=== PATIENT | female | born 1985 ===

== ENCOUNTER 2019-06-30 18:54 | Emergency (ER) | payer OTHER ==
[~2019-06-30] VITALS: Ht 157 cm; Wt 93.6 kg
[2019-06-30] MEDS ORDERED: IBUPROFEN 800 MG (MOTRIN) TAB PO STA (21:10)
--- NOTE | 2019-06-30 21:33 | ED Fall/Injury ---
General Chief Complaint: Trauma-Non Activation Stated Complaint: LEFT WRIST,SHOULDER,ELBOW PAIN Nursing Triage Note: PT FELL WHILE WORKING AT [employer] AND IS COMPLAINING OF RIGHT KNEE, HIP, SHOULDER, ELBOW AND LEFT WRIST. NO OBVIOUSLY DEFORMITIES NOTED. PT DID NOT LOSE CONSCIOUSNESS DURING FALL Source: patient History of Present Illness Date Seen by Provider: Jun 30, 2019 Time Seen by Provider: 20:38 Initial Comments 34-year-old female presenting with complaints of pain after having a fall at 10:40 AM at work. She works for [employer]. She finished her shift at work. She reports that someone had sprayed [employer] cooking spray in the cooking area and it had gotten on the floor. she had slipped and fell hitting her right knee and hip as well as hitting her right elbow and shoulder. She has pain in the right elbow and shoulder primarily. She reports that she is a little stiff with her walking and has mild pain in her hip and knee on the right side but isn't worried about that as much as she has about her elbow and shoulder. She has had prior surgery on the elbow and shoulder area. She is concerned that she may have injured the ligaments or muscles to cause pain. She does not feel that she has any broken bones but it was concerned again about the soft tissues. 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 She denies hitting her head or losing consciousness Allergies and Home Medications Allergies Coded Allergies: azithromycin (Verified Allergy, Unknown, 06/30/19) Home Medications Baclofen 10 Mg Tablet, 10 MG PO TID PRN for SPASMS Prescribed by: SIMON Reed ENVIPULRT on 06/30/192208 Hydrocodone Bit/Acetaminophen 1 Tab Tab, 1 EACH PO Q6H PRN for PAIN-MODERATE Prescribed by: SIMON Reed ENYART on 06/30/192208 Ibuprofen 800 Mg Tablet, 800 MG PO Q8H PRN for PAIN Prescribed by: SIMON MUSTAFART on 06/30/192208 Patient Home Medication List Home Medication List Reviewed: Yes Review of Systems Review of Systems Constitutional: no symptoms reported Eyes: No Symptoms Reported Ears, Nose, Mouth, Throat: no symptoms reported Respiratory: no symptoms reported Cardiovascular: no symptoms reported Gastrointestinal: no symptoms reported Genitourinary: no symptoms reported Musculoskeletal: see HPI Skin: no symptoms reported Past Dkxzsep-Qhlhxw-Xotqao Hx Past Med/Social Hx: Reviewed Nursing Past Med/Soc Hx Patient Social History Alcohol Use: Denies Use Recreational Drug Use: No 2nd Hand Smoke Exposure: No Recent Foreign Travel: No Contact w/Someone Who Travel: No Recent Infectious Disease Expo: No Recent Hopitalizations: No Physical Abuse: No Sexual Abuse: No Mistreated: No Fear: No Past Medical History Surgeries: Yes Orthopedic Respiratory: Yes Asthma Cardiac: No Neurological: No Genitourinary: No Gastrointestinal: No Musculoskeletal: Yes (ARTHROPYOSIS) Endocrine: No HEENT: No Cancer: No Psychosocial: No Integumentary: No Blood Disorders: No Physical Exam Vital Signs Vital Signs - First Documented 06/30/19 19:20 Temp 36.1 Pulse 103 Resp 18 B/P (MAP) 154/97 (116) Pulse Ox 100 O2 Delivery Room Air Capillary Refill : Less Than 3 Seconds Height, Weight, BMI Height: '" Weight: lbs. oz. kg; 37.00 BMI Method: General Appearance: WD/WN, no apparent distress HEENT: PERRL/EOMI, pharynx normal Neck: non-tender, full range of motion, supple, normal inspection Cardiovascular: normal peripheral pulses Extremities: normal capillary refill, other (decreased ROM on right shoulder and elbow due to pain. Mild swelling to right elbow. Normal sensation to right hand ) Neurologic/Psychiatric: alert, normal mood/affect, oriented x 3 Skin: normal color, warm/dry; No ecchymosis Juan Ramon Coma Score Best Eye Response: (4) Open Spontaneously Best Verbal Response: (5) Oriented Best Motor Response: (6) Obeys Commands Juan Ramon Total: 15 Progress/Results/Core Measures Results/Orders My Orders Orders - SIMON SIBLEY MD Ibuprofen Tablet (Motrin Tablet) (06/30/19 21:10) Shoulder 3 View Right (06/30/19 21:10) Elbow 3 View Right (06/30/19 21:10) Rx-Hydrocodone/Apap 5-325 Mg (Rx-Vicodin (06/30/19 22:15) Orthopedic Equiment (06/30/19 22:02) Medications Given in ED Current Medications Medications Dose Ordered Sig/Ramiro Route Start Time Stop Time Status Last Admin Dose Admin Acetaminophen/ Hydrocodone Bitart 1 ea Q6H PRN PO 06/30/19 22:15 06/30/19 22:16 DC 06/30/19 22:07 1 EA Vital Signs/I&O 06/30/19 06/30/19 19:20 22:17 Temp 36.1 Pulse 103 99 Resp 18 16 B/P (MAP) 154/97 (116) 150/90 Pulse Ox 100 100 O2 Delivery Room Air Room Air Blood Pressure Mean: 116 Progress Progress Note #1: Progress Note Ibuprofen for pain and obtain imaging of her right shoulder and elbow. Progress Note #2: Progress Note No acute fracture or dislocation seen of the elbow or shoulder. Advised patient that if she continued to have symptoms she might need MRI or other testing to evaluate muscles and ligaments that she has had prior surgeries. If there is a muscular or tendon type injury that without doing an MRI or something to image the soft tissues it would not show up. Treat symptomatically with a sling for rest and use baclofen for muscle relaxer. Send with a hydrocodone take home pack to help her rest. Ibuprofen for pain and inflammation. Check back through occupational health her work comp clinic for further evaluation. Diagnostic Imaging Diagonstic Imaging: Xray Plain Films/CT/US/NM/MRI: other (shoulder) Comments NAME: BRIANNA KWON MED REC#: [id number] PT STATUS: REG ER : 1985 PHYSICIAN: SIMON SIBLEY MD ADMIT DATE: 06/30/19/ER FS Draft Date of Exam:06/30/19 SHOULDER 3 VIEW RIGHT EXAMINATION: Right shoulder at 9:14 PM INDICATION: Fell Four views were obtained. There are no prior studies available for comparison. There is no fracture, dislocation or acute bony abnormality evident. There is mild narrowing of the glenohumeral and acromioclavicular joints. The soft tissues are unremarkable for an acute abnormality. There do appear to be surgical clips in the soft tissues about the humerus. IMPRESSION: There is no evidence for an acute bony abnormality. Dictated on workstation # [id number] Dict: 06/30/192149 Trans: 06/30/192154 [facility] [id number] Interpreted by: RIANNA NARVAEZ MD Electronically signed by: Diagonstic Imaging: Xray Plain Films/CT/US/NM/MRI: elbow Comments NAME: BRIANNA KWON MED REC#: [id number] PT STATUS: REG ER : 1985 PHYSICIAN: SIMON SIBLEY MD ADMIT DATE: 06/30/19/ER FS Draft Date of Exam:06/30/19 ELBOW 3 VIEW RIGHT EXAMINATION: Right elbow at 9:10 PM INDICATION: Fell, elbow pain 3 views were obtained. There are no prior studies available for comparison. There is no fracture, dislocation or acute bony abnormality identified. The trabecula of the neck of the radius are somewhat irregular but there is no clear evidence for a fracture. The posterior fat-pad is not elevated on the lateral view either. The soft tissues are unremarkable for an acute abnormality. There does seem to be a surgical clip in the soft tissues of the mid upper arm. IMPRESSION: 1. There is no evidence for an acute bony abnormality. 2. If clinical concern regarding an occult fracture persists, then CT would be recommended for further study. Dictated on workstation # [id number] Dict: 06/30/19 2148 Trans: 06/30/19 2154 [facility] [id number] Interpreted by: RIANNA NARVAEZ MD Electronically signed by: Departure Impression Primary Impression: Sprain of shoulder, right Qualified Codes: S43.401A - Unspecified sprain of right shoulder joint, initial encounter Additional Impressions: Sprain of right elbow Qualified Codes: S53.401A - Unspecified sprain of right elbow, initial encounter Fall Qualified Codes: W19.XXXA - Unspecified fall, initial encounter Contusion of right leg Qualified Codes: S80.11XA - Contusion of right lower leg, initial encounter Contusion of right arm Qualified Codes: S40.021A - Contusion of right upper arm, initial encounter Disposition: 01 HOME, SELF-CARE Condition: Stable Departure-Patient Inst. Decision time for Depature: 22:05 Referrals: NO,LOCAL PHYSICIAN (PCP) Primary Care Physician [facility] Patient Instructions: Elbow Sprain (DC), Contusion (DC), Shoulder Sprain (DC) Add. Discharge Instructions: Follow up with Orthopedics or Work Comp clinic about the pain and injury to right shoulder and elbow. Wear sling for next 3-5 days but try to start taking your arm out and using it after 2-3 days so that your arm does not stiffen up. Try the Baclofen (Lioresal) for muscle spasms and tightness in arm and shoulder. May try the Hydrocodone for severe pain and to help you rest tonight. May continue Ibuprofen for pain and inflammation All discharge instructions reviewed with patient and/or family. Voiced understanding. Scripts Baclofen (Baclofen) 10 Mg Tablet 10 MG PO TID PRN for SPASMS for 10 Days, #30 TAB 0 Refills Prov: SIMON SIBLEY MD 06/30/19 Ibuprofen (Ibuprofen) 800 Mg Tablet 800 MG PO Q8H PRN for PAIN for 10 Days, #30 TAB 0 Refills Prov: SIMON SIBLEY MD 06/30/19 Hydrocodone Bit/Acetaminophen (Hydrocodone/Acetaminophen 5/325mg Tablet) 1 Tab Tab 1 EACH PO Q6H PRN for PAIN-MODERATE MDD 10 for 3 Days, #12 TAB 0 Refills Prov: SIMON SIBLEY MD 06/30/19 Work/School Note: Work Release Form Date Seen in the Emergency Department: Jun 30, 2019 Return to Work: Jul 01, 2019 Restrictions: Follow Up With Occ Health Other Restrictions Listed Below: wear sling on right arm. Follow up with Occupational Health. SIMON SIBLEY MD Jun 30, 2019 21:32
--- NOTE | 2019-06-30 21:54 | Diagnostic Imaging Report ---
EXAMINATION: Right elbow at 9:10 PM INDICATION: Fell, elbow pain 3 views were obtained. There are no prior studies available for comparison. There is no fracture, dislocation or acute bony abnormality identified. The trabecula of the neck of the radius are somewhat irregular but there is no clear evidence for a fracture. The posterior fat-pad is not elevated on the lateral view either. The soft tissues are unremarkable for an acute abnormality. There does seem to be a surgical clip in the soft tissues of the mid upper arm. IMPRESSION: 1. There is no evidence for an acute bony abnormality. 2. If clinical concern regarding an occult fracture persists, then CT would be recommended for further study. Dictated by: Dictated on workstation # [id number]
--- NOTE | 2019-06-30 21:56 | Diagnostic Imaging Report ---
EXAMINATION: Right shoulder at 9:14 PM INDICATION: Fell Four views were obtained. There are no prior studies available for comparison. There is no fracture, dislocation or acute bony abnormality evident. There is mild narrowing of the glenohumeral and acromioclavicular joints. The soft tissues are unremarkable for an acute abnormality. There do appear to be surgical clips in the soft tissues about the humerus. IMPRESSION: There is no evidence for an acute bony abnormality. Dictated by: Dictated on workstation # [id number]
[2019-06-30] MEDS ORDERED: BACL10TA PO (22:09)
[2019-06-30] MEDS ORDERED: IBUP-1780 PO (22:09)
[2019-06-30] MEDS ORDERED: ACHD5005 PO (22:09)
[2019-06-30] MEDS ORDERED: RX-HYDROCODONE/APAP 5/325 MG #4 TAB PK PO PRN (22:15)
== END 2019-06-30 22:16 | disposition home or self-care (01) ==
LOC: MERGE 18:56 → ER FS 18:56
DX: S43.401A Unspecified sprain of right shoulder joint, initial encounter (principal); S53.401A Unspecified sprain of right elbow, initial encounter; S80.11XA Contusion of right lower leg, initial encounter; S40.021A Contusion of right upper arm, initial encounter; J45.909 Unspecified asthma, uncomplicated; Z88.1 Allergy status to other antibiotic agents; W01.10XA Fall on same level from slipping, tripping and stumbling with subsequent striking against unspecified object, initial encounter; Y92.59 Other trade areas as the place of occurrence of the external cause; Y99.0 Civilian activity done for income or pay
CPT/HCPCS: 73030; 73080